=== PATIENT | female | born 1945 | race Caucasian/White ===

== ENCOUNTER 2017-01-02 07:53 | Day surgery (SDC) | payer OTHER ==
[~2017-01-02 07:53] MED LIST: LIDOCAINE W/ SODIUM BICARB 0.5 ML SYR ONE; Lactated Ringers 1,000 ML PRIMARY IV ONE; ceFAZolin Inj 2gm (Premix) 50 ML IV ONE
[2017-01-02] MEDS ORDERED: Ropivacaine 0.2% VIAL 20 ML ONE (10:50)
[2017-01-02] MEDS ORDERED: EPINEPHrine Inj (1:1,000) 30mg/30ml vial ONE (10:50)
[2017-01-02] MEDS ORDERED: fentaNYL Inj 250 MCG/5 ML VIAL ONE (10:58)
[2017-01-02] MEDS ORDERED: MIDAZOLAM 5 MG/1 ML ONE (10:58)
[2017-01-02] MEDS ORDERED: LIDOCAINE MPF 2% - 5 ML (20 MG/1 ML) ONE (10:58)
[2017-01-02] MEDS ORDERED: BETAMET ACET/BETAMET NA PH 6 MG/1 ML - 5 ML ONE (11:48)
[2017-01-02] MEDS ORDERED: NORMAL SALINE 10 ML SYRINGE FLUSH IVP PRN ×2 (12:27→12:34)
[2017-01-02] MEDS ORDERED: Ondansetron ODT Tab 8 MG TAB PO PRN (12:27)
[2017-01-02] MEDS ORDERED: oxyCODONE/APAP 7.5/325 Tab 1 TAB TAB PO PRN (12:27)
[2017-01-02] MEDS ORDERED: ACETAMINOPHEN 325 MG TABLET PO PRN (12:27)
[2017-01-02] MEDS ORDERED: CALCIUM CARBONATE 500 MG (TUMS) CHEWABLE TABLET PO PRN (12:27)
[2017-01-02] MEDS ORDERED: diphenhydrAMINE 25 MG CAPSULE PO PRN (12:27)
[2017-01-02] MEDS ORDERED: Prochlorperazine Tab 10 MG TAB PO PRN (12:27)
[2017-01-02] MEDS ORDERED: MORPHINE SULFATE 2 MG/1 ML IVP PRN (12:27)
[2017-01-02] MEDS ORDERED: IBUPROFEN 400 MG TABLET PO PRN (12:27)
[2017-01-02] MEDS ORDERED: MAG HYDROX/AL HYDROX/SIMETH 30 ML SUSP PO PRN (12:27)
[2017-01-02] MEDS ORDERED: BISACODYL 10 MG SUPPOSITORY RECTAL PRN (12:27)
[2017-01-02] MEDS ORDERED: BISACODYL 5 MG TABLET PO PRN (12:27)
[2017-01-02] MEDS ORDERED: ONDANSETRON 4 MG/2 ML VIAL IVP PRN (12:27)
[2017-01-02] MEDS ORDERED: Lactated Ringers 1,000 ML PRIMARY IV SCH (12:30)
[2017-01-02] MEDS ORDERED: KETOROLAC 30 MG/1 ML VIAL ONE (12:32)
[2017-01-02] MEDS ORDERED: HYDROmorphone 2 MG/1 ML IVP PRN (12:34)
[2017-01-02 15:23] VITALS: RESP 20; TEMP 97.9
--- NOTE | 2017-01-02 15:55 | PT.PROG ---
Progress Note Progress Note: S: Pt. states she is feeling pretty good. No c/o pain in her knee. O: Treatment consisted of gait training on even surfaces and up and down 3 stairs with use of standard walker and CGA x 1. Pt. was placed in w/c and left with nurses. A: Pt. overall did very well with gait training. She was able to demonstrate safety and proper weight bearing tolerance. P: D/c patient from therapy as no further therapy is indicated. Ashly Farr, CHIEF [employer]LLNESS OFFICER
== END 2017-01-02 14:56 | disposition home or self-care (01) ==
LOC: SDSC 07:53
PROVIDERS: ATTEND Orthopaedic Surgery
DX: S83.241A Other tear of medial meniscus, current injury, right knee, initial encounter (principal); M65.9 Synovitis and tenosynovitis, unspecified
CPT/HCPCS: 29876; 29881; 97116; J0171; J0690; J0702; J1885; J2704; J2795; J3010; J2001; J2250; J7120